=== PATIENT | male | born 1955 | race American Indian/Alaskan Native ===

== ENCOUNTER 2020-06-01 08:53 | Emergency (ER) | payer MEDICAID ==
[2020-06-01 09:12] VITALS: BP 142/89
--- NOTE | 2020-06-01 09:40 | XRay Report ---
LEFT HAND 3 VIEWS INDICATION / CLINICAL INFORMATION: fall/swelling/pain. COMPARISON: None available. FINDINGS: Subchondral cystic changes seen in the distal radius, a scaphoid, the triquetrum and the proximal por tion of the thumb metacarpal. Small erosions are seen in the long finger metacarpal head and in the P IP joint of the ring finger. 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 No other s ignificant skeletal abnormality Signer Name: Hollis Barraza MD FACR Signed: 06/01/2020 9:35 AM Workstation Name: [id number]
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
== END 2020-06-01 11:20 | disposition home or self-care (01) ==
LOC: ED 08:53
DX: S66.912A Strain of unspecified muscle, fascia and tendon at wrist and hand level, left hand, initial encounter (principal); E11.9 Type 2 diabetes mellitus without complications; Z98.890 Other specified postprocedural states; Z87.891 Personal history of nicotine dependence; Z79.899 Other long term (current) drug therapy; W01.0XXA Fall on same level from slipping, tripping and stumbling without subsequent striking against object, initial encounter; Y93.89 Activity, other specified; Y92.89 Other specified places as the place of occurrence of the external cause; Y99.8 Other external cause status

== ENCOUNTER 2020-08-10 09:19 | Emergency (ER) | payer MEDICAID ==
--- NOTE | 2020-08-10 09:25 | Event Note ---
ED Screening Note ED Screening Note: sp fall r shoulder and l hand pain This initial assessment/diagnostic orders/clinical plan/treatment(s) is/are subject to change based on patients health status, clinical progression and re- assessment by fellow clinical providers in the ED. Further treatment and workup at subsequent clinical providers discretion. Patient/guardian urged not to elope from the ED as their condition may be serious if not clinically assessed and managed. Initial orders include: xr
[2020-08-10 09:28] VITALS: BP 122/63
--- NOTE | 2020-08-10 10:47 | XRay Report ---
RIGHT SHOULDER 3 VIEW(S) INDICATION / CLINICAL INFORMATION: shoulder pain sp fall COMPARISON: None available. FINDINGS: BONES / JOINT(S): No acute fracture or subluxation. Moderate osteoarthritis of the AC joint. SOFT TISSUES: No significant abnormality. ADDITIONAL FINDINGS: None. IMPRESSION: 1. No acute osseous findings in the right shoulder. 2. Moderate right AC osteoarthritis. Signer Name: Jose Armando Burkett MD Signed: 08/10/2020 10:43 AM Workstation Name: [email or web address]
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
== END 2020-08-10 11:10 | disposition home or self-care (01) ==
LOC: ED 09:19
DX: S40.011A Contusion of right shoulder, initial encounter (principal); S60.222A Contusion of left hand, initial encounter; E11.9 Type 2 diabetes mellitus without complications; Z98.890 Other specified postprocedural states; Z79.1 Long term (current) use of non-steroidal anti-inflammatories (NSAID); W19.XXXA Unspecified fall, initial encounter; Y93.89 Activity, other specified; Y92.89 Other specified places as the place of occurrence of the external cause; Y99.8 Other external cause status

== ENCOUNTER 2021-01-06 14:17 | Inpatient (IN) | payer MEDICARE ==
[2021-01-06] MEDS ORDERED: HYDROmorphone 1 MG/1 ML INJ IM ONE (14:37)
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
[2021-01-06] MEDS ORDERED: HYDROmorphone 1 MG/1 ML INJ IV ONE ×3 (16:10→20:55)
[2021-01-06 16:43] LABS: BUN/Creatinine Ratio 19; Blood Urea Nitrogen 17 mg/dL (9-20); Calcium 9.6 mg/dL (8.4-10.2); Hemolysis Index 20
[2021-01-06 16:49] LABS: INR 0.9 (0.87-1.13)
[2021-01-06 16:50] LABS: Partial Thromboplastin Time 26.9 Sec. (24.2-36.6)
[2021-01-06 16:52] LABS: Basophils # (Auto) 0.1 K/mm3 (0.0-0.1); Basophils % (Auto) 0.5 % (0.0-1.8); Eosinophils # (Auto) 0.2 K/mm3 (0.0-0.4); Eosinophils % (Auto) 1.2 % (0.0-4.3); Hematocrit 39.7 % (35.5-45.6); Hemoglobin 13.5 gm/dl (11.8-15.2); Mean Corpuscular HGB Conc 34 % (32-34); Mean Corpuscular Volume 95 fl (84-94); Monocytes # (Auto) 0.8 K/mm3 (0.0-0.8); Monocytes % (Auto) 6.2 % (0.0-7.3); Platelet Count 224 K/mm3 (140-440); Red Cell Distribution Width 13.9 % (13.2-15.2)
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
[2021-01-06] MEDS ORDERED: ONDANSETRON 4 MG/2 ML INJ IV ONE (17:08)
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
[2021-01-06] MEDS ORDERED: ACETAMINOPHEN 325 MG TAB PO PRN (18:19)
[2021-01-06] MEDS ORDERED: ONDANSETRON 4 MG/2 ML INJ IV PRN (18:19)
[2021-01-06] MEDS ORDERED: ALBUTEROL 2.5 MG/3 ML NEBU IH PRN (18:19)
[2021-01-06] MEDS: HYDROmorphone 1 MG/1 ML INJ IV PRN ×2 (19:16→22:51)
[2021-01-06] MEDS: oxyCODONE /ACETAMINOPHEN 5-325MG TAB PO PRN (21:04)
[2021-01-06] MEDS: SODIUM CHLORIDE 0.9% 1000 ML 1,000 ML IV SCH (23:51)
[2021-01-07] MEDS: HYDROmorphone 1 MG/1 ML INJ IV PRN ×6 (02:00→20:16)
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
[2021-01-07] MEDS ORDERED: DEXTROSE 50% IN WATER (25GM) 50 ML SYRINGE IV PRN (09:18)
[2021-01-07] MEDS ORDERED: hydrALAZINE 20 MG/1 ML INJ IV PRN (09:18)
[2021-01-07] MEDS: DOCUSATE SODIUM 100 MG CAP PO SCH (11:40)
[2021-01-07] MEDS: INSULIN LISPRO 100 UNIT/ML SUB-Q SCH ×2 (15:50→17:13)
[2021-01-07] MEDS: oxyCODONE /ACETAMINOPHEN 5-325MG TAB PO PRN (22:51)
[2021-01-08] MEDS: INSULIN LISPRO 100 UNIT/ML SUB-Q SCH ×4 (00:16→18:51)
[2021-01-08] MEDS: DOCUSATE SODIUM 100 MG CAP PO SCH ×3 (00:16→21:58)
[2021-01-08] MEDS: SODIUM CHLORIDE 0.9% 1000 ML 1,000 ML IV SCH (00:17)
[2021-01-08] MEDS: HYDROmorphone 1 MG/1 ML INJ IV PRN ×7 (01:17→22:57)
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
[2021-01-09] MEDS: INSULIN LISPRO 100 UNIT/ML SUB-Q SCH ×4 (00:21→18:00)
[2021-01-09] MEDS: HYDROmorphone 1 MG/1 ML INJ IV PRN ×4 (05:21→23:33)
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
[2021-01-09] MEDS: amLODIPine 10 MG TAB PO SCH (09:50)
[2021-01-09] MEDS: DOCUSATE SODIUM 100 MG CAP PO SCH ×2 (10:51→23:31)
[2021-01-09] MEDS ORDERED: NEOMY 40 MG/POLYMYXIN B 200,000 UNITS/ML (GU) AMPULE IR ONE ×3 (13:49→16:13)
[2021-01-09] MEDS ORDERED: BUPIVACAINE/PF (0.25%) 2.5 MG/ML 30 ML VIAL INFILTRATI ONE ×2 (13:49)
[2021-01-09] MEDS ORDERED: dexAMETHasone 4 MG/ML VIAL ONE (14:53)
[2021-01-09] MEDS ORDERED: BUPIVACAINE/PF (0.5%) 5 MG/1 ML 30 ML VIAL INFILTRATI ONE (14:53)
[2021-01-09] MEDS ORDERED: LIDOCAINE PF 100 MG/5 ML (CARDIAC SYRINGE) IV ONE (15:02)
[2021-01-09] MEDS ORDERED: PHENYLEPHRINE/NS 1,000 MCG/10 ML SYRINGE (OR USE) IV ONE (15:02)
[2021-01-09] MEDS ORDERED: dexAMETHasone 20 MG/5 ML VIAL ONE (15:02)
[2021-01-09] MEDS ORDERED: SUCCINYLCHOLINE CHLORIDE 200 MG/10 ML INJ MDV ONE (15:02)
[2021-01-09] MEDS ORDERED: ONDANSETRON 4 MG/2 ML INJ ONE (15:02)
[2021-01-09] MEDS ORDERED: fentaNYL 100 MCG/2 ML INJ ONE (15:03)
[2021-01-09] MEDS ORDERED: propofoL 200 MG/20 ML VIAL IV ONE (15:03)
[2021-01-09] MEDS ORDERED: MIDAZOLAM 5 MG/5 ML INJ MDV IV ONE (15:18)
[2021-01-09] MEDS ORDERED: ceFAZolin 1 GM VIAL ONE (15:47)
[2021-01-09] MEDS ORDERED: MORPHINE 4 MG/1 ML INJ IV PRN (17:12)
[2021-01-09] MEDS ORDERED: MORPHINE 2 MG/1 ML INJ IV PRN (17:12)
[2021-01-09] MEDS ORDERED: KETOROLAC 30 MG/1 ML INJ IV PRN (17:12)
--- NOTE | 2021-01-09 17:20 | Procedure Note ---
Date of procedure: 01/09/21 Pre-op diagnosis: displaced left distal radius fracture Post-op diagnosis: same Procedure: Open reduction internal fixation left distal radius Procedure The patient was brought to the OR placed in the OR table in supine position following induction and intubation by anesthesia the patient's left upper extremity was prepped and draped in the usual sterile manner A timeout procedure was done to identify the patient and the correct operative site. The arm was exsanguinated followed by inflation of the pneumatic tourniquet to 250 mmHg. A volar incision was made along the distal radius as is taken down sharply through skin and subcutaneous the flexor carpi radialis tendon was seen next the incision was carried deep to this structure we encountered the quadratus tendon this was then debrided from the distal radius using a periosteal elevator the fracture site was seen she was noted to have a small comminuted fragment along the volar surface after the gentle manipulation the fracture fragments were reduced into a more anatomic position next the left distal radius locking plate was applied via C-arm care was taken to insert both locking and nonlocking screws of various lengths AP and lateral views were obtained showing good reduction at the fracture and in placement of our hardware the wrist was taken through a range of motion and was found to be stable next the wound was copiously irrigated and was closed in a standard routine fashion. Dressings were applied as well as a well-padded volar splint the patient tolerated the procedure there were no complications and she was sent to postanesthesia recovery in a stable condition Anesthesia: MAC, regional Surgeon: KAREEM URRUTIA (Donna Vazquez, 1st assist) Estimated blood loss: minimal Pathology: none Condition: stable Disposition: PACU
--- NOTE | 2021-01-09 18:07 | XRay Report ---
XR wrist 2V LT INDICATION / CLINICAL INFORMATION: LT WRIST FX. COMPARISON: None available. FINDINGS: ORIF of distal radial fracture Fluoroscopy time: 19 seconds. Fluoroscopic images: 2. IMPRESSION: 1. ORIF of distal radial fracture Signer Name: Hollis Barraza MD FACGregory Signed: 01/09/2021 6:02 PM Workstation Name: [id number]
[2021-01-09] MEDS ORDERED: ONDANSETRON 4 MG/2 ML INJ IV PRN (18:10)
[2021-01-09] MEDS ORDERED: HYDROmorphone 1 MG/1 ML INJ IV PRN ×2 (18:10)
--- NOTE | 2021-01-09 18:12 | Anesthesia Day of Surgery ---
Anesthesia Day of Surgery - Day of Surgery Patient Examined: Yes Patient H&P Reviewed: Yes Patient is NPO: Yes
--- NOTE | 2021-01-09 18:13 | Post Anesthesia Evaluation ---
- Post Anesthesia Evaluation Patient Participated: Yes Airway Patent: Yes Stable Respiratory Function: Yes Nausea/Vomiting: No Temp > 96.8F: Yes Pain Manageable: Yes Adequeate Hydration: Yes Anesthesia Complications: No Block Receding Appropriately: Yes Patient on Ventilator: No
--- NOTE | 2021-01-09 18:13 | Anesthesia Consultation ---
Anesthesia Consult and Med Hx Date of service: 01/09/21 - Airway Anesthetic Teeth Evaluation: Edentulous ROM Head & Neck: Adequate Mental/Hyoid Distance: Adequate Mallampati Class: Class II Intubation Access Assessment: Good - Pre-Operative Health Status ASA Pre-Surgery Classification: ASA2 Proposed Anesthetic Plan: General Nerve Block: IS - Pulmonary Hx Smoking: Yes - Cardiovascular System Hx Hypertension: Yes - Endocrine Hx Non-Insulin Dependent Diabetes: Yes - Other Systems Hx Cancer: No
[2021-01-10] MEDS: oxyCODONE /ACETAMINOPHEN 5-325MG TAB PO PRN ×2 (02:10→08:57)
[2021-01-10] MEDS: INSULIN LISPRO 100 UNIT/ML SUB-Q SCH ×3 (02:16→12:50)
[2021-01-10] MEDS ORDERED: diphenhydrAMINE 25 MG CAP PO ONE (06:00)
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
[2021-01-10] MEDS: DOCUSATE SODIUM 100 MG CAP PO SCH (08:59)
[2021-01-10] MEDS: amLODIPine 10 MG TAB PO SCH (08:59)
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
[2021-01-10 11:18] VITALS: BP 145/63
== END 2021-01-10 14:00 | disposition home or self-care (01) | DRG 512 ==
LOC: ED 14:17 → 3B-SURG 18:19
PROVIDERS: ADMIT Internal Medicine; ATTEND Internal Medicine
PROC: 0PSJ04Z Reposition Left Radius with Internal Fixation Device, Open Approach (ICD-10-PCS; principal; 2021-01-09)
DX: S52.542A Smith's fracture of left radius, initial encounter for closed fracture (principal); S83.92XA Sprain of unspecified site of left knee, initial encounter; S63.005A Unspecified dislocation of left wrist and hand, initial encounter; S80.01XA Contusion of right knee, initial encounter; S40.011A Contusion of right shoulder, initial encounter; D72.829 Elevated white blood cell count, unspecified; I10 Essential (primary) hypertension; E11.9 Type 2 diabetes mellitus without complications; E66.9 Obesity, unspecified; V89.2XXA Person injured in unspecified motor-vehicle accident, traffic, initial encounter; Z82.49 Family history of ischemic heart disease and other diseases of the circulatory system; Z83.3 Family history of diabetes mellitus; Z68.23 Body mass index [BMI] 23.0-23.9, adult
CPT/HCPCS: 36415; 80048; 82962; 85025; 85610; 85730; 96365; 96372; G0378; C1713; J0330; J0690; J1100; J1170; J1815; J1885; J2001; J2250; J2270; J2370; J2405; J2704; J3010; J3490; J7030

== ENCOUNTER 2021-02-02 10:53 | Observation (INO) | payer MEDICARE ==
[2021-02-02] MEDS ORDERED: ONDANSETRON 4 MG/2 ML INJ IV ONE (12:04)
[2021-02-02] MEDS ORDERED: FAMOTIDINE 20 MG/2 ML INJ IV ONE (12:04)
[2021-02-02] MEDS ORDERED: SODIUM CHLORIDE 0.9% 1000 ML 1,000 ML IV ONE (12:07)
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
--- NOTE | 2021-02-02 12:25 | XRay Report ---
CHEST 1 VIEW 02/02/2021 11:18 AM INDICATION / CLINICAL INFORMATION: Shortness of breath. COMPARISON: None available. FINDINGS: SUPPORT DEVICES: None. HEART / MEDIASTINUM: No significant abnormality. LUNGS / PLEURA: No significant pulmonary abnormality. No significant pleural effusion. No pneumothora x. ADDITIONAL FINDINGS: No significant additional findings. IMPRESSION: 1. No acute abnormality of the chest. Signer Name: Ab Burdick MD Signed: 02/02/2021 12:20 PM Workstation Name: [id number]
[2021-02-02 12:54] LABS: Basophils # (Auto) 0.1 K/mm3 (0.0-0.1); Basophils % (Auto) 0.5 % (0.0-1.8); Eosinophils % (Auto) 0.4 % (0.0-4.3); Hematocrit 41.9 % (35.5-45.6); Hemoglobin 14.1 gm/dl (11.8-15.2); Lymphocytes # (Auto) 2.4 K/mm3 (1.2-5.4); Lymphocytes % (Auto) 18.2 % (13.4-35.0); Mean Corpuscular HGB Conc 34 % (32-34); Mean Corpuscular Volume 92 fl (84-94); Monocytes # (Auto) 0.8 K/mm3 (0.0-0.8); Monocytes % (Auto) 6.2 % (0.0-7.3); Platelet Count 279 K/mm3 (140-440); Red Blood Count 4.55 M/mm3 (3.65-5.03); Red Cell Distribution Width 13.4 % (13.2-15.2)
[2021-02-02 13:13] LABS: Creatine Kinase MB 1.9 ng/mL (0.0-4.0)
[2021-02-02 13:15] LABS: Alanine Aminotransferase 26 units/L (7-56); Albumin 4.6 g/dL (3.9-5); BUN/Creatinine Ratio 21; Blood Urea Nitrogen 23 mg/dL (9-20); Calcium 9.4 mg/dL (8.4-10.2); Hemolysis Index 63
[2021-02-02 13:28] LABS: Bilirubin,Urine NEG (Negative); Blood,Urine SM (Negative); Color,Urine Yellow (Yellow); RBC,Urine < 1.0 /HPF (0.0-6.0); Urobilinogen,Urine < 2.0 mg/dL (<2.0)
--- NOTE | 2021-02-02 14:14 | Electrocardiograph Report ---
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
--- NOTE | 2021-02-02 15:05 | Cat Scan Report ---
CT abdomen pelvis w con INDICATION / CLINICAL INFORMATION: Epigastric pain nausea vomiting diarrhea 100 ML OMNI 300. TECHNIQUE: Axial CT images were obtained through the abdomen and pelvis after IV contrast. All CT sc ans at this location are performed using CT dose reduction for ALARA by means of automated exposure c ontrol. COMPARISON: None available. FINDINGS: LOWER CHEST: Mild cardiac enlargement and bibasilar interstitial edema and/or atelectasis. LIVER: Hepatomegaly with suspected hepatic steatosis. Tiny hypodensity within the left hepatic lobe i s too small to further characterize, though likely reflects a cyst. GALLBLADDER/BILIARY TREE: No significant abnormality PANCREAS: No significant abnormality SPLEEN: No significant abnormality ADRENALS: No significant abnormality KIDNEYS / URETER: Tiny hypodensities are too small to further characterize, though likely reflect cys ts. Kidneys enhance symmetrically. No hydronephrosis. URINARY BLADDER: No significant abnormality REPRODUCTIVE ORGANS: No significant abnormality STOMACH / BOWEL:Small hiatal hernia. Small bowel and colon demonstrate no evidence of mechanical obst ruction or inflammation. The appendix is normal in caliber. LYMPH NODES: No significant adenopathy. VASCULATURE: Mild atherosclerotic calcification without acute abnormality. OTHER: No free air, free fluid, or focal fluid collection is identified. SKELETAL SYSTEM: No acute osseous findings. IMPRESSION: 1. No acute abnormality of the abdomen or pelvis. 2. Mild cardiac enlargement and mild bibasilar interstitial edema and/or atelectasis. 3. Hepatomegaly with suggestion of hepatic steatosis. 4. Other chronic and incidental findings, as above. Signer Name: Jose Armando Burkett MD Signed: 02/02/2021 3:01 PM Workstation Name: [id number]
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
[2021-02-02] MEDS ORDERED: ALBUTEROL 2.5 MG/3 ML NEBU IH PRN (16:13)
[2021-02-02] MEDS ORDERED: ACETAMINOPHEN 325 MG TAB PO PRN (16:13)
[2021-02-02] MEDS ORDERED: HYDROmorphone 1 MG/1 ML INJ IV PRN (16:13)
[2021-02-02] MEDS ORDERED: ONDANSETRON 4 MG/2 ML INJ IV PRN (16:13)
[2021-02-02] MEDS ORDERED: SODIUM CHLORIDE 0.9% 1000 ML 1,000 ML IV SCH (16:15)
[2021-02-02] MEDS ORDERED: SODIUM BICARB 8.4% 50 MEQ/50 ML SYRINGE IV ONE (16:18)
[2021-02-02] MEDS: oxyCODONE /ACETAMINOPHEN 5-325MG TAB PO PRN (23:44)
[2021-02-03] MEDS: oxyCODONE /ACETAMINOPHEN 5-325MG TAB PO PRN (06:16)
[2021-02-03 08:13] LABS: Basophils # (Auto) 0.1 K/mm3 (0.0-0.1); Basophils % (Auto) 0.5 % (0.0-1.8); Eosinophils # (Auto) 0.1 K/mm3 (0.0-0.4); Eosinophils % (Auto) 1.2 % (0.0-4.3); Hematocrit 35.6 % (35.5-45.6); Hemoglobin 12.4 gm/dl (11.8-15.2); Lymphocytes # (Auto) 3.3 K/mm3 (1.2-5.4); Lymphocytes % (Auto) 33.5 % (13.4-35.0); Mean Corpuscular HGB Conc 35 % (32-34); Mean Corpuscular Volume 93 fl (84-94); Monocytes # (Auto) 0.8 K/mm3 (0.0-0.8); Monocytes % (Auto) 8.2 % (0.0-7.3); Platelet Count 227 K/mm3 (140-440); Red Blood Count 3.82 M/mm3 (3.65-5.03); Red Cell Distribution Width 13.2 % (13.2-15.2)
[2021-02-03 09:27] LABS: BUN/Creatinine Ratio 20; Blood Urea Nitrogen 18 mg/dL (9-20); Calcium 9.2 mg/dL (8.4-10.2); Hemolysis Index 6
[2021-02-03] MEDS ORDERED: SODIUM CHLORIDE 0.9% 1000 ML 1,000 ML IV ONE (11:00)
[2021-02-03] MEDS: POTASSIUM CHLORIDE 10 MEQ 10 MEQ/100 ML BAG IV SCH ×2 (11:22→18:27)
--- NOTE | 2021-02-03 11:26 | Discharge Summary ---
Providers - Providers Date of Admission: 02/02/21 16:14 Attending physician: SKYE SHIN MD Primary care physician: TERESA OMALLEY MD Hospitalization Reason for admission: Gastroenteritis Condition: Stable Hospital course: 65 YO Male with Obesity Hypoventilation Syndrome, HTN, DM presents to ED for evaluation. Patient reports "I feel sick". Patient states that he has experienced nausea, multiple episodes of vomiting, and multiple loose stools over the past 3 days with intermittent symptoms over the same timeframe. Patient states his symptoms began approximately 20 minutes after eating a hard- boiled egg that he prepare for himself. Patient states that he is unable to tolerate oral intake over the past 3 days. Patient transported to [facility] via private vehicle for further care and evaluation of the aforementioned symptoms. The patient was seen and evaluated in the emergency department. All lab and imaging studies reviewed. Patient found to have clinical symptoms consistent with gastroenteritis as well systemic plantar response syndrome, metabolic acidosis, and intractable nausea and vomiting. Patient placed in observation status and admitted to medical floor for further care and evaluation due to increased risk of worsening symptoms. Patient treated with bowel rest, IV fluid resuscitation therapy antiemetic therapy. Patient denies fever, chills, chest pain, palpitation, adductive cough, skin rash, recent ill contacts, or known exposure to COVID-19. Prior admission on 01/06/2021 reviewed. No medication listed at time of admission for reconciliation. Advanced care planning conducted in ED. Patient seen and examined this morning reports significant improvement in symptoms believes that this was related to the food that he ate. He is clinically stable for discharge noted hypokalemia will replace. (1) viral gastroenteritis (2) Intractable nausea and vomiting (3) Metabolic acidosis (4) Systemic inflammatory response syndrome Morbid obesity Disposition: TO HOME OR SELFCARE Final Discharge Diagnosis (Prints w/discharge instructions): Viral gastroenteritis related to food poisoning Time spent for discharge: 35-minute Core Measure Documentation - Palliative Care Palliative Care/ Comfort Measures: Not Applicable - Core Measures Any of the following diagnoses?: none Exam - Physical Exam Narrative exam: VITAL SIGNS: Reviewed. GENERAL: The patient appears normally developed, Vital signs as documented. HEAD: No signs of head trauma. EYES: Pupils are equal. Extraocular motions intact. EARS: Hearing grossly intact. MOUTH: Oropharynx is normal. NECK: No adenopathy, no JVD. CHEST: Chest with clear breath sounds bilaterally. No wheezes, rales, or rhonchi. CARDIAC: Regular rate and rhythm. S1 and S2, without murmurs, gallops, or rubs. VASCULAR: No Edema. Peripheral pulses normal and equal in all extremities. ABDOMEN: Soft, non tender and non distended. No rebound or guarding, and no masses palpated. Bowel Sounds normal. MUSCULOSKELETAL: Good range of motion of all major joints. Extremities without clubbing, cyanosis or edema. NEUROLOGIC EXAM: Alert and oriented x 3 No focal sensory or strength deficits. Speech normal. Follows commands. PSYCHIATRIC: Mood normal. SKIN: detail exam as documented in skin assessment - Constitutional Vitals: Temp Pulse Resp BP Pulse Ox 97.8 F 88 20 99/64 97 02/02/21 11:18 02/02/21 23:02 02/02/21 23:02 02/03/21 06:30 02/03/21 07:29 Plan Activity: advance as tolerated, fall precautions Diet: low fat Special Instructions: record daily weights, record daily BP diary Follow up with: TERESA OMALLEY MD [Primary Care Provider] - 3-5 Days Prescriptions: Famotidine [Acid-Pep] 20 mg PO DAILY #30 tablet Ondansetron [Zofran Odt] 4 mg PO Q8HR #14 tabmanuel
[2021-02-03] MEDS ORDERED: POTASSIUM CHLORIDE ER 20 MEQ TAB PO NR (11:47)
[2021-02-03 13:20] VITALS: BP 151/90
== END 2021-02-03 16:10 | disposition home or self-care (01) ==
LOC: ED 10:53 → 3A 16:14
PROVIDERS: ADMIT Internal Medicine; ATTEND Internal Medicine
DX: A08.4 Viral intestinal infection, unspecified (principal); K52.9 Noninfective gastroenteritis and colitis, unspecified; R65.10 Systemic inflammatory response syndrome (SIRS) of non-infectious origin without acute organ dysfunction; E87.2 Acidosis; E86.0 Dehydration; I10 Essential (primary) hypertension; E11.9 Type 2 diabetes mellitus without complications; E78.5 Hyperlipidemia, unspecified; Z79.899 Other long term (current) drug therapy; Z98.890 Other specified postprocedural states; Z87.891 Personal history of nicotine dependence
CPT/HCPCS: 36415; 71045; 74177; 80048; 80053; 81001; 82140; 82550; 82553; 82805; 83690; 84484; 85025; 87040; 93005; 96361; 96365; 96375; 96376; 99285; G0378; J1170; J1956; J2405; J3480; J7030; Q9967; 82962

== ENCOUNTER 2021-03-16 10:16 | Outpatient (CLI) | payer MEDICARE ==
--- NOTE | 2021-03-16 11:55 | XRay Report ---
Left wrist 3 views INDICATION: Pain FINDINGS: Postoperative changes with radial plate. Fracture involving the distal radius persist witho ut significant callus formation or definite bony union/healing. Ulnar styloid process fracture. Advan max degenerative change and base of the thumb and throughout the carpal bones. Diffuse soft tissue sw elling is identified. Signer Name: Allan Philip MD Signed: 03/16/2021 11:51 AM Workstation Name: [id number]
== END 2021-03-16 10:17 | disposition home or self-care (01) ==
LOC: XRAY 10:16
PROVIDERS: ATTEND Orthopaedic Surgery
DX: S52.612A Displaced fracture of left ulna styloid process, initial encounter for closed fracture (principal); S63.005A Unspecified dislocation of left wrist and hand, initial encounter; M19.032 Primary osteoarthritis, left wrist; M79.89 Other specified soft tissue disorders; X58.XXXA Exposure to other specified factors, initial encounter; Y93.89 Activity, other specified; Y92.89 Other specified places as the place of occurrence of the external cause; Y99.8 Other external cause status